=== PATIENT | male | born 1955 | race Caucasian/White ===

== ENCOUNTER 2019-04-13 11:04 | Observation (INO) ==
[2019-04-13] MEDS ORDERED: fentaNYL citrate 100 MCG/2 ML VIAL ONE ×2 (11:52→13:28)
[2019-04-13] MEDS ORDERED: MIDAZOLAM HCL 5 MG/ML 1 ML VIAL ONE ×2 (11:52→13:27)
--- NOTE | 2019-04-13 12:20 | Pre Anesthesia Assessment ---
Date of Service April 13, 2019 Pre Sedation Assessment Vital Signs Temp Pulse Resp BP Pulse Ox 04/13/19 11:15 36.7 C 84 16 162/98 H 98 Cardiovascular RRR, no murmur, no edema Respiratory normal respiratory effort, lungs clear to auscultation Pre-Sedation Airway Assessment Smoking Status: Never smoker Hx Sleep Apnea: Yes Short, Thick Neck: No Thyromental Distance: > or= 3.5 Finger Breadths Oral Cavity: + WNL Mallampati Class: IV ASA: ASA3 NPO Status Date of Last Intake of Fluids: 04/12/19 Time of Last Intake of Fluids: 23:00 Date of Last Intake of Solid Food: 04/12/19 Time of Last Intake of Solid Foods: 23:00 Procedure Planning Contraindications for Sedation: none Current Medications Reviewed: Yes Notes The planned sedation has been discussed with the patient. Informed Consent was obtained. I have identified the patient, determined the appropriateness of sedation and have assessed the patient immediately prior to the procedure. All medicine(s) and interventions are by my order.
--- NOTE | 2019-04-13 12:20 | History & Physical Bridge Note ---
Date of Service April 13, 2019 History & Physical Bridge Note I have examined the patient, reviewed the History & Physical and in the interval since the performance of the History & Physical I have noted the following changes of clinical significance: no changes noted
[2019-04-13] MEDS ORDERED: ISOPROTERENOL HCL 0.2 MG/ML 5 ML AMP IV ONE (13:06)
--- NOTE | 2019-04-13 15:13 | Post Anesthesia Assessment ---
Date of Service April 13, 2019 Post Sedation Assessment Vital Signs Temp Pulse Resp BP Pulse Ox 04/13/19 11:15 36.7 C 84 16 162/98 H 98 Recovery Score Activity: Moves 4 extremities Respiration: Deep Breath/Cough Circulation: +/-20% PreAnes Value Consciousness: Fully Awake Oxygen Saturation: > 92% On Room Air Discharge Sedation Level of Care: Fast Track Phase II Post Sedation Plan On clinical assessment, the patient appears to have tolerated the sedation without complications. Patient is recovering as anticipated. Patient will continue to be monitored by nursing and may be discharged when sedation discharge criteria are met per below protocol. Upon Completions of procedure and additional 15 minutes continue every 5 minute vital signs and the P.A.R. score; then discharge to a Phase I or Fast Track to Phase II per the following guidelines: * Discharge Patient to appropriate Phase II area if PAR is 8 or greater or return to pre- procedure baseline. The post - procedure orders will be as directed. * If PAR score is less than 8 or not return to pre-procedure baseline then patient will follow Phase I monitoring till PAR is reached for Phase II. The Phase I may be done in procedure room or may call to secure a Phase I area. * If naloxone or flumazenil are used for reversal, hold in Phase I for continued monitoring from when last reversal dose was given for a minimum of 60 minutes or longer pending the nurse and/or physician discretion of patient condition before discharge to Phase II. Please call the Sedation Physician to re-evaluate and complete post-note for discharge to Phase II area. Do NOT discharge from procedure sedation or Phase 1 until post- sedation evaluation note is complete by procedure /sedation MD Sedation Discharge Instructions to be given to the patient at discharge to home.
[2019-04-13] MEDS ORDERED: ACETAMINOPHEN 325 MG TAB PO PRN (15:14)
--- NOTE | 2019-04-13 15:14 | Operative Report ---
Post Operative Report Pre & Post Diagnosis Pre: SVT Post: AVNRT Operation Date: 04/13/19 13:00 <No data on this case meets the specified criteria> Procedure Operation Date: 04/13/19 13:00 <No data on this case meets the specified criteria> EPS Isoprel infusion 3d mapping of His bundle and C/S Os Slow pathway modification Surgeon Gloria Clement, DO Acid Supervisor none Estimated Blood Loss 5 Findings Consistent with Post-Op Diagnosis Specimens none Description of Procedure see official report I attest to the content of the Intraoperative Record and any orders documented therein. Any exceptions are noted below.
[2019-04-13] MEDS ORDERED: NITROGLYCERIN SL 0.4 MG/TAB TAB SL PRN (15:15)
--- NOTE | 2019-04-13 15:24 | Discharge Summary ---
Date of Service April 13, 2019 Admission HPI Per Admitting Provider pt with palpitations a/w chest pain and SOB and documented SVT Admission Exam Per Admitting Provider aaox3, NAD NC/AT, EOMI Supple No JVD Nrl S1/S2, No murmur CTA b/l no w/r/r soft nt/nd no LE edema b/l skin intact no focal deficits Principal Diagnosis AVNRT s/p slow pathway modification Discharge Exam aaox3, NAD NC/AT, EOMI Supple No JVD Nrl S1/S2, No murmur CTA b/l no w/r/r soft nt/nd no LE edema b/l skin intact no focal deficits Discharge Data Allergies Allergy/AdvReac Type Severity Reaction Status Date / Time No Known Allergies Allergy Unverified 04/13/19 11:38 Procedures Performed Operation Date: 04/13/19 13:00 <No data on this case meets the specified criteria> EPS, isporel drug infusion, 3d mapping of his bundle and C/S Os, slow pathway modification Ordered Studies ECG: SR 04/13/19 07:15 EP Lab Images for PACS ONCE Hospital Course (1) AVNRT (AV viktoriya re-entry tachycardia): (2) HLD (hyperlipidemia): (3) HTN (hypertension): (4) CAD (coronary artery disease): (5) Diabetes: Total Time Total Time Spent Total Time Spent (In Minutes): 30 Total Time Includes: Discharge Planning, Medication Reconciliation and Other Discharge Plan Discharge Items Patient Disposition: Home - Self-Care Reason For Visit: SVT Discharge Diagnosis: avnrt s/p slow pathway modification Condition on Discharge: Good Activity: As commented below Lifting: No more than 10 pounds Lifting Comment: no heavy lifting or squating for 1 week Bathing: No limitations Sexual Activity: After one week Non-emergency contact: Blending Machine Feeder Call non-emergency contact if: you have any medication questions Follow-up/Referrals: Jad Harding DO [Primary Care Provider] - Diet: Heart Healthy Addtl Attending Provider Instructions: f/u with Dr. Clement as scheduled Pending Studies at Discharge: No Stand-Alone Forms: My [employer] Medications and DC Order Prescriptions: New metoprolol succinate 50 mg Tablet Extended Release 24 Hr 25 mg PO DAILY Qty: 30 RF: 0 Continued aspirin 325 mg Tablet 325 mg PO DAILY RF: 0 acyclovir 400 mg Tablet 400 mg PO DIRECTED PRN (Reason: Outbreak) RF: 0 metformin 1,000 mg Tablet 1,000 mg PO BID RF: 0 nitroglycerin [Nitrostat] 0.4 mg Tablet, Sublingual 0.4 mg sublingual DIRECTED PRN (Reason: Chest Pain) RF: 0 lisinopril-hydrochlorothiazide 10-12.5 mg Tablet 1 tab PO DAILY RF: 0 Novolog Flexpen U-100 Insulin 100 unit/mL (3 mL) Insulin Pen See Rx Instructions .ROUTE .COMPLEX RF: 0 rosuvastatin [Crestor] 10 mg Tablet 10 mg PO DAILY RF: 0 fenofibrate nanocrystallized [Tricor] 145 mg Tablet 145 mg PO DAILY RF: 0 Lantus Solostar U-100 Insulin 100 unit/mL (3 mL) Insulin Pen 54 unit SUBCUT DAILY RF: 0 Viagra 100 mg capsule 100 mg PO Q4 PRN (Reason: Erectile Dysfunction) RF: 0 Discontinued metoprolol succinate 50 mg Tablet Extended Release 24 Hr 50 mg PO DAILY RF: 0 Discharge Orders: Discharge Order (Routine); Ordered 04/14/19 Ordered By: Gloria Clement Admission Data Admit Date/Time: 04/13/19 14:19 Attending Provider: Gloria Clement Admit Provider: Gloria Clement Primary Care Provider: Jad Harding V.
[2019-04-13] MEDS ORDERED: GLUCOSE 10 TABS/TUBE PO PRN (16:45)
[2019-04-13] MEDS ORDERED: CARBOHYDRATES FOR HYPOGLYCEMIA PO PRN (16:45)
[2019-04-13] MEDS ORDERED: GLUCAGON FOR INJ 1 MG VIAL IM PRN (16:45)
[2019-04-13] MEDS ORDERED: DEXTROSE 50% 50 ML SYRINGE IV PRN (16:45)
[2019-04-13] MEDS ORDERED: GLUCOSE 40% GEL 15 GM TUBE PO PRN (16:45)
[2019-04-13] MEDS ORDERED: PHARMACY GLYCEMIC MGMT CONSULT PRN (16:47)
[2019-04-13] MEDS ORDERED: METFORMIN HCL 500 MG TAB PO SCH (17:00)
[2019-04-13] MEDS ORDERED: INSULIN GLARGINE SOLOSTAR 100 UNITS/ML 3 ML PEN SQ SCH (17:30)
[2019-04-13] MEDS: INSULIN ASPART 100 UNITS/ML 3 ML PEN SC SCH ×2 (18:57→20:55)
[2019-04-13] MEDS: INSULIN GLARGINE SOLOSTAR 100 UNITS/ML 3 ML PEN SQ SCH ×2 (18:57→20:55)
--- NOTE | 2019-04-13 23:44 | Operative Report ---
DATE OF OPERATION: 04/13/2019 PREOPERATIVE DIAGNOSIS: Supraventricular tachycardia. POSTOPERATIVE DIAGNOSIS: Atrioventricular viktoriya reentrant tachycardia. PROCEDURE: Electrophysiology study, isuprel drug infusion challenge, 3D mapping of the His bundle region and coronary sinus os, and slow pathway radiofrequency modification ablation. SURGEON: Gloria Clement DO TEST PREPARER: None. ANESTHESIA: Monitored conscious sedation administered under my supervision by Maya Ray, start time 1223, end time 1512, total of 7 mg of Versed and 175 mcg of fentanyl. INTRAVENOUS FLUIDS: 88 mL. BLOOD LOSS: 5 mL. URINE OUTPUT: None. SPECIMENS: None. FINDINGS: See below. DRAINS: None. INDICATIONS: This is a 64-year-old gentleman with a past medical history for SVT initially diagnosed in 2017, had a repeat episode on 02/03/2019, responded to vagal maneuvers, but then another episode on 03/29/2019 where he needed ER visit with adenosine. Additional past medical history, incomplete right bundle branch block; hypertension; hyperlipidemia; diabetes, on insulin; obstructive sleep apnea, on CPAP; family history of arrhythmias and mild coronary artery disease, nonobstructive by cardiac CT. Due to his recurrent SVT that is symptomatic, he was recommended electrophysiology study with possible ablation. CONSENT: Consent was obtained prior to the patient going into the electrophysiology lab. The patient was informed of the risks, benefits and alternative procedures. Risks include but not limited to sudden cardiac , cardiac arrhythmias, cerebrovascular accident, myocardial infarction, injury to the blood vessels, chamber of the heart or the comanche electrical system where he would need a permanent pacemaker, bleeding, and infection. The patient understood these risks and agreed to the procedure as planned. Informed consent was obtained. DESCRIPTION OF THE PROCEDURE: The patient was brought into the electrophysiology lab in a fasting state. He was connected to continuous school bus monitor. A timeout was performed to ensure patient identity and procedure correctly. The patient received moderate conscious sedation throughout the procedure for patient's comfort level. He was prepped and draped over the bilateral groins in normal surgical standard fashion. Monitored conscious sedation was given throughout the procedure for patient's comfort level. A 10 mL of 1% lidocaine were given in bilateral groins for local anesthesia. Then using modified Seldinger technique, venous access was obtained in the following manner. Left femoral vein had a 7-Palestinian sheath followed by a Decapolar [email or web address] coronary sinus DF curved catheter that was positioned down the coronary sinus. A 7-Palestinian sheath followed by a quadripolar Hisser catheter was positioned over the His bundle. A 6-Palestinian sheath followed by a quadripolar Rosaura catheter was positioned into the right ventricle apex. The right femoral vein had a 6-Palestinian sheath that had a quadripolar Rosaura catheter positioned in the high right atrium and a 5-Palestinian sheath that was ultimately swapped out for an SR0 followed by then the ablation Biosense 4 mm catheter DF curved. With the catheters in position, an electrophysiology study was performed with the following findings: ME interval 133 milliseconds, QRS 88 milliseconds, QT 356 milliseconds. The sinus cycle length 742 milliseconds, AH is 84 milliseconds, HV 50 milliseconds, AV Wenckebach was 250 milliseconds, fast pathway ERP was 600/320 and 400/340. The AV node ERP was less than or equal to the atrial at [address] The atrial ERP was 600/270 and 400/220. The right ventricular ERP was 600/240 and 400/200. I did induce but it was not sustained tachycardia at 400/330/230, tachycardia cycle length was 375, and VA time was 67. There was retrograde A conduction that was concentric. I needed. however, to start isuprel to sustain it and when I V paced it and entrained, I had a VAV response. With the isuprel, I induced at 400/350/250. We then set up with the diagnosis of AVNRT a slow pathway modification. The 5-Palestinian sheath was switched out for the SR0 and then the ablation catheter was placed up into the right atrium. We did 3D mapping of the His bundle region as well as the coronary sinus os, then positioning the ablation catheter on the low right atrial septum where we saw decent signal, we then started giving a series of radiofrequency eddy first at 20 sweeney, then up to 25 sweeney. Of note, also when I was testing prior to the ablation, I did have at times when I was giving double extrastimuli from the high right atrium, double echo beats as well. There was a ridge on either side around this area and it never really got great junctionals, but I also never got the best catheter stability. However, I did give a number of eddy and had a couple of junctional beats here and there. So then we went back to check post-ablation. Post-ablation electrophysiology study had following findings: ME interval 151 milliseconds, QRS 89 milliseconds, QT 350 milliseconds. Sinus cycle length 667 milliseconds, AH 86 milliseconds, HV 48 milliseconds, AV Wenckebach 350 milliseconds, AV node ERP was 400/320, the atrial ERP was 400/200, and the right ventricular ERP was 400/220. I then started isuprel at 2 and once I had an adequate response, the sinus cycle length was 549 milliseconds, AH was 78 milliseconds, HV was 46 milliseconds, AV Wenckebach 270 milliseconds. The AV node ERP was less than or equal to the atrial ERP. The atrial ERP was less than or equal to 400/200. The right ventricular ERP was less than or equal to 400/200. I gave up the triples on isuprel from the high right atrium and never induced any SVT. In a rare occasion, I had 1 echo beat. We then allowed the patient to wash out the isuprel and then all the catheters were removed from the body. Then the sheaths were pulled and manual compression was used to establish hemostasis. IMPRESSION: 1. 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 2. Evidence of a dual atrioventricular viktoriya pathology. PLAN: Monitor patient overnight, decrease his Toprol back down to 25 mg daily. No heavy lifting or squatting for a week. Follow up in my office in 1 month. I attest to the content of the Intraoperative Record and any orders documented therein. Any exception s are noted below.
[2019-04-14] MEDS: INSULIN ASPART 100 UNITS/ML 3 ML PEN SC SCH ×3 (00:04→08:04)
[2019-04-14 08:33] LABS: Estimated Average Glucose 226 mg/dl; Hemoglobin A1C 9.5 % (4.5-5.6)
[2019-04-14] MEDS ORDERED: ROSUVASTATIN CALCIUM 10 MG TAB PO SCH (09:00)
[2019-04-14] MEDS ORDERED: METOPROLOL SUCC 25MG EXT REL TAB PO SCH (09:00)
[2019-04-14] MEDS ORDERED: ASPIRIN 325 MG ECTAB PO SCH (09:00)
[2019-04-14] MEDS ORDERED: FENOFIBRATE NANOCRYSTALLIZED 145 MG TABLET PO SCH (09:00)
[2019-04-14] MEDS ORDERED: LISINOPRIL/HCTZ 10/12.5MG TAB PO SCH (09:00)
== END 2019-04-14 10:33 | disposition home or self-care (01) ==
LOC: EP 11:04 → 2S 11:04